=== PATIENT | male | born 1960 | race Caucasian/White ===

== ENCOUNTER → 2021-05-25 | Outpatient (CLI) | payer MEDICARE ==
[2021-05-25 09:38] LABS: HEMOGLOBIN 15.8 gm/dl (14.0-17.5); RED BLOOD COUNT 4.59 M/UL (4.20-5.50); WHITE BLOOD COUNT 9.6 K/UL (4.5-11.0)
[2021-05-25 10:33] LABS: BUN/CREATININE RATIO 14 (0-10)
== END ==
LOC: LAB 09:09
PROVIDERS: Internal Medicine Cardiovascular Disease
DX: I10 Essential (primary) hypertension (principal)
CPT/HCPCS: 36415; 80053; 80061; 84443; 85025

== ENCOUNTER → 2021-05-28 | Outpatient (CLI) | payer MEDICARE | LOC: HEART 5 15:23 | DX: R06.02 Shortness of breath (principal); I07.1 Rheumatic tricuspid insufficiency | CPT/HCPCS: 93306 ==